=== PATIENT | male | born 1975 | race American Indian/Alaskan Native ===

== ENCOUNTER 2017-06-21 12:28 | Observation (INO) | payer OTHER ==
[~2017-06-21] VITALS: Ht 185.4 cm; Wt 111.2 kg
[2017-06-21] MEDS ORDERED: NITROGLYCERIN SINGLE TAB 0.4 MG SL ONE (12:56)
[2017-06-21] MEDS ORDERED: ASPIRIN 81 MG TABLET CHEW ONE (12:56)
[2017-06-21] MEDS ORDERED: NITROGLYCERIN SINGLE TAB 0.4 MG SL PRN (13:00)
[2017-06-21] MEDS ORDERED: ASPIRIN 81 MG TABLET CHEW PO ONE (13:00)
[2017-06-21] MEDS ORDERED: SODIUM CHLORIDE FLUSH 10ML SYR IVF ONE (13:00)
[2017-06-21 13:12] LABS: HEMATOCRIT 37.9 % (39.2-51.8); HEMOGLOBIN 13.2 g/dL (13.7-18.0); WHITE BLOOD COUNT 6.8 x10^3/uL (3.4-10)
[2017-06-21 13:23] LABS: BLOOD UREA NITROGEN 19 mg/dL (7-18)
[2017-06-21 13:27] LABS: IS PT STATUS REG ER OR PRE ER? YES
[2017-06-21] MEDS ORDERED: SODIUM CHLORIDE FLUSH 10ML SYR IVF PRN (14:30)
[2017-06-21] MEDS ORDERED: ONDANSETRON 2MG/ML, 2ML IVPush PRN (15:00)
[2017-06-21] MEDS ORDERED: LABETALOL 5MG/ML, 20ML IVPush PRN (15:00)
[2017-06-21] MEDS ORDERED: NITROGLYCERIN 0.4 MG BOTTLE (25 TABS) SL PRN (15:00)
[2017-06-21] MEDS ORDERED: morphine SULFATE 10 MG/ML, 1ML IVPush PRN (15:00)
[2017-06-21] MEDS ORDERED: ACETAMINOPHEN 325 MG TABLET PO PRN (15:00)
[2017-06-21] MEDS ORDERED: HYDROcodone/APAP 5/325 TABLET PO PRN (15:00)
[2017-06-21] MEDS ORDERED: BISACODYL 10 MG SUPP PR PRN (15:00)
[2017-06-21] MEDS ORDERED: DOCUSATE 100 MG CAPSULE PO PRN (15:00)
[2017-06-21] MEDS ORDERED: POLYETHYLENE GLYCOL 17 GM PACKET PO PRN (15:00)
[2017-06-21] MEDS ORDERED: FLU VACC QS2017-18 (36MOS+) UP/PF 0.5 ML IM-VACC ONE (16:30)
[2017-06-21] MEDS ORDERED: OMNIPAQUE 350 MG/ML, 100ML BOTTLE ONE (16:52)
[2017-06-21] MEDS: ENOXAPARIN 40 MG/0.4 ML SQ SCH (18:04)
[2017-06-21 18:27] LABS: IS PT STATUS REG ER OR PRE ER? NO
[2017-06-21 19:20] VITALS: BP 170/97
[2017-06-21] MEDS: SODIUM CHLORIDE FLUSH 10ML SYR IVF SCH (20:16)
[2017-06-21 22:17] VITALS: BP 146/93
[2017-06-22 00:48] LABS: IS PT STATUS REG ER OR PRE ER? NO
[2017-06-22 01:50] VITALS: BP 141/69
[2017-06-22] MEDS ORDERED: ASPIRIN 325 MG TABLET EC PO SCH (06:00)
[2017-06-22] MEDS: SODIUM CHLORIDE FLUSH 10ML SYR IVF SCH (07:54)
[2017-06-22 08:17] VITALS: BP 148/90
[2017-06-22] MEDS ORDERED: REGADENOSON 0.4 MG/5 ML SYRINGE ONE (08:43)
[2017-06-22 14:24] VITALS: BP 136/83
[2017-06-22] MEDS: ENOXAPARIN 40 MG/0.4 ML SQ SCH (15:34)
== END 2017-06-22 18:20 | disposition home or self-care (01) ==
LOC: ED 13:58 → EDIP 14:25 → INTOOBSV 14:25 → 5SO 15:29
PROVIDERS: ADMIT Hospitalist; ATTEND Hospitalist
DX: R07.89 Other chest pain (principal); D64.9 Anemia, unspecified; M72.2 Plantar fascial fibromatosis; R73.9 Hyperglycemia, unspecified; Z83.3 Family history of diabetes mellitus; Z82.49 Family history of ischemic heart disease and other diseases of the circulatory system; Z23 Encounter for immunization
CPT/HCPCS: 36415; 71010; 71275; 72040; 72072; 72110; 78452; 80048; 80061; 82040; 83880; 84484; 85025; 85379; 90471; 90686; 93005; 93017; 93306; 96372; 99285; A9502; C9898; G0378; J1650; J2785; Q9967